=== PATIENT | female | born 1945 | race Caucasian/White ===

== ENCOUNTER 2016-10-07 12:59 | Emergency (ER) ==
[2016-10-07 13:05] VITALS: BP 150/75
--- NOTE | 2016-10-07 16:00 | PROVIDER DOCUMENTATION ---
HPI-General Adult - General Source: patient - History of Present Illness -Gen Adult Nature of Presenting Problems: 71 year old female presents to the ER with body aches, cough, runny nose and nausea x 2 days. Pt denies fever. Location of Pain/Injury: reports: head Onset/Duration: reports: 2 days ago Timing: reports: still present Associated Symptoms: reports: cough, sinus congestion/drainage, nausea <Apple Forrest - Last Filed: 10/07/16 16:45> <Jose Mcmullen - Last Filed: 10/07/16 16:52> - General Chief Complaint: Cold Symptoms Stated Complaint: FLU SX Time Seen by Provider: 10/07/16 15:48 Allergies/Adverse Reactions: Patient Allergies Allergy/AdvReac Type Severity Reaction Status Date / Time No Known Allergies Allergy Verified 06/26/14 19:34 Home Medications: Home Medication List Medication Instructions Recorded Confirmed Last Taken Type LOVAstatin [Mevacor] 40 mg PO WSUPPER 10/13/13 06/26/14 06/25/14 History Levothyroxine [Synthroid] 50 microgm PO DIRECTED 10/13/13 06/26/14 06/25/14 History Lorazepam 1 mg PO QPM PRN PRN 10/13/13 06/26/14 06/25/14 History Cephalexin [Keflex] 500 mg PO BID #20 capsule 06/26/14 Unknown Rx Tolterodine Tartrate [Detrol LA] 4 mg PO DAILY 06/26/14 06/26/14 06/26/14 History Guaifenesin/Codeine [Robitussin-AC] 10 ml PO Q4H PRN PRN #8 oz 10/07/16 Unknown Rx Review of Systems - Adult - REVIEW OF SYSTEMS - ADULT Constitutional: denies: chills, fever Eyes: reports: no symptoms reported Ears, Nose, Mouth & Throat: reports: ear pain, nose pain Cardiovascular: reports: no symptoms reported Respiratory: reports: cough. denies: wheezing Gastrointestinal: reports: nausea. denies: vomiting Genitourinary: reports: no symptoms reported Musculoskeletal: reports: no symptoms reported Integumentary: reports: no symptoms reported Neurological: reports: no symptoms reported Psychiatric: reports: no symptoms reported Endocrine: reports: no symptoms reported Hematologic/Lymphatic: reports: no symptoms reported Allergic/Immunologic: reports: no symptoms reported All Other Systems: Reviewed and Negative <Apple Forrest - Last Filed: 10/07/16 16:45> Past History - Adult - PAST MEDICAL HISTORY-ADULT Review of Records: reports: Nursing Assessment Review, Medications Reviewed Major Childhood Illnesses: reports: denies history Cardiovascular: reports: denies history Respiratory: reports: denies history Gastrointestinal: reports: denies history Obstetrical/Gynecological: reports: denies history Genitourinary: reports: other (uti last week) Musculoskeletal: reports: denies history Neurological: reports: denies history Psychiatric: reports: denies history Endocrine/Immune: reports: denies history Other Conditions: reports: denies history - PRIOR SURGERIES/PROCEDURES Surgical/Procedure History: reports: none - PRIOR HOSPITALIZATIONS Prior Hospitalizations: reports: none - IMMUNIZATION STATUS Childhood Immunizations: UTD, See Nurse Assessment Flu Vaccine: See Nurse Assessment - FAMILY HISTORY Family History: reviewed, not pertinent <Apple Forrest - Last Filed: 10/07/16 16:45> Physical Exam-General - PHYSICAL EXAM-ADULT Initial Vital Signs Reviewed: Yes - CONSTITUTIONAL General Appearance: alert, no apparent distress - EYES Eyes: PERRL/EOMI, pink conjunctivae - HEAD, EARS, NOSE, MOUTH & THROAT HENMT: normocephalic/atraumatic, moist mucous membranes - RESPIRATORY Respiratory: lungs clear, normal breath sounds - CARDIOVASCULAR Cardiovascular: normal peripheral pulses, regular rate, rhythm - MUSCULOSKELETAL Back Exam: normal inspection, no CVA tenderness Extremity: normal gait, normal inspection - SKIN Integumentary: normal color, warm/dry - NEUROLOGIC Neurologic: grossly normal, no motor/sensory deficits - PSYCHIATRIC Psych/Mental Status: normal mood/affect, normal thought content, normal thought process, oriented x 3 <Apple Forrest - Last Filed: 10/07/16 16:45> Progress - XRAY 1 XRAY Study: Chest Impression: Normal XRAY Interpretation: per Dr. Mcmullen <Apple Forrest - Last Filed: 10/07/16 16:45> Departure <Apple Forrest - Last Filed: 10/07/16 16:45> - Departure Time of Disposition Order: 16:47 Certified Medical Emergency: Emergent <Jose Mcmullen - Last Filed: 10/07/16 16:52> - Departure DIAGNOSIS: URI (upper respiratory infection) Qualifiers: URI type: unspecified viral URI Qualified Code(s): J06.9 - Acute upper respiratory infection, unspecified Disposition: HOME 01 Condition: Stable Prescriptions: Guaifenesin/Codeine [Robitussin-AC] 10 ml PO Q4H PRN PRN #8 oz PRN Reason: Cough Referrals: None,PCP [Primary Care Provider] - Attestation - Scribe Verification/Attestation Scribe:: Apple Forrest Acting as Scribe for:: Jose Mcmullen Scribe documention review:: This chart was documented by a scribe and accurately reflects the service the provider performed and the decisions made by the provider. <Apple Forrest - Last Filed: 10/07/16 16:45> Physician Attestation
[2016-10-07 16:40] LABS: MANUAL DIFF NEEDED? NO
[2016-10-07 16:42] LABS: BASO% 0.5 % (0.0-0.8); EOS# 0.15 X1000 (0.0-0.7); HEMATOCRIT 42.4 % (37.0-47.0); HEMOGLOBIN 14.5 g/dL (12.0-16.0); IMM GRAN# 0.01 X1000 (0.0-0.04); IMM GRAN% 0.1 % (0.0-0.5); LYMPH# 2.34 X1000 (1.2-3.4); LYMPH% 30.5 % (20.5-51.1); MCHC 34.2 g/dL (33-37); MCV 93.6 FL (81-99); MONO# 0.93 X1000 (0.11-0.59); MONO% 12.1 % (1.7-9.3); MPV 11.5 FL (7.4-10.4); NEUT% 54.8 % (42.2-75.2); PLT 155 X1000 (130-400); RBC 4.53 XMIL (4.2-5.4)
--- NOTE | 2016-10-07 18:10 | Diag Imaging Result Document ---
PROCEDURE NAME: CHEST-2 VIEWS - 10/07/2016 CHEST, 2 VIEWS: FINDINGS: No comparison exam. Heart size is normal. There is a small granuloma from old granulomatous disease at the left base. There are apparent mild COPD changes. There is no consolidation, pleural effusion, or pneumothorax identified. There is apparent degenerative disk disease with endplate sclerosis and anterior osteophytes at the mid to lower thoracic spine. IMPRESSION: 1. Mild COPD changes. 2. No evidence of acute disease. 3. Apparent degenerative disease noted at mid and lower thoracic spine.
== END 2016-10-07 17:02 | disposition home or self-care (01) ==
LOC: P.ED 12:59
DX: J06.9 Acute upper respiratory infection, unspecified (principal); R05 Cough; R09.89 Other specified symptoms and signs involving the circulatory and respiratory systems; R11.0 Nausea; R09.81 Nasal congestion; R52 Pain, unspecified; H92.09 Otalgia, unspecified ear; J34.89 Other specified disorders of nose and nasal sinuses; Z79.899 Other long term (current) drug therapy; Z87.440 Personal history of urinary (tract) infections
CPT/HCPCS: 71020; 85025; 99283

== ENCOUNTER 2016-10-19 08:06 | Day surgery (SDC) | payer OTHER ==
[2016-10-17 13:28] LABS: MANUAL DIFF NEEDED? NO
[2016-10-17 13:45] LABS: BASO% 0.4 % (0.0-0.8); EOS# 0.09 X1000 (0.0-0.7); EOS% 1.1 % (0.0-10.0); HEMATOCRIT 40.2 % (37.0-47.0); LYMPH# 2.97 X1000 (1.2-3.4); LYMPH% 34.8 % (20.5-51.1); MCH 32.6 PG (27-31); MCHC 34.8 g/dL (33-37); MCV 93.5 FL (81-99); MONO# 0.79 X1000 (0.11-0.59); MONO% 9.3 % (1.7-9.3); MPV 11.3 FL (7.4-10.4); NEUT% 54.4 % (42.2-75.2); PLT 197 X1000 (130-400)
[2016-10-17 13:47] LABS: INR 1.04
[2016-10-17 14:06] LABS: AGAP 13; ALBUMIN 4.2 g/dL (3.5-5.0); ALKALINE PHOSPHATASE 42 U/L (32-104); BUN 11 mg/dL (8-22); CALCIUM 9.6 mg/dL (8.8-10.2); CHLORIDE 100 mmol/L (98-107); COSMO 278; GOT 17 U/L (10-30); GPT 12 U/L (10-36); POTASSIUM 4.3 mmol/L (3.5-5.1); SODIUM 140 mmol/L (136-145); TCO2 27 mmol/L (25-35); TOTAL PROTEIN 7.2 g/dL (6.3-8.3)
[2016-10-19] MEDS ORDERED: NS 1,000 ML ONE (09:34)
--- NOTE | 2016-10-19 09:40 | EKG Report ---
Test Performed on : 10/19/2016 09:26:56 AM Test Reason : per MD order Blood Pressure : / mmHG Vent. Rate : 066 BPM Atrial Rate : 066 BPM P-R Int : 144 ms QRS Dur : 088 ms QT Int : 434 ms P-R-T Axes : 071 017 050 degrees QTc Int : 454 ms Sinus rhythm. with premature supraventricular complexes. Otherwise normal ECG No previous ECGs available Confirmed by Shanita PALOMARES, Marty Valdez ([id number]) on 10/19/2016 5:24:53 PM
[2016-10-19] MEDS ORDERED: HEPARIN 1000 UNITS/NS 1,000 ML ONE (09:42)
[2016-10-19] MEDS ORDERED: VERSED ONE (10:04)
[2016-10-19] MEDS ORDERED: DILAUDID ONE (10:04)
--- NOTE | 2016-10-19 11:09 | CARDIAC CATH REPORT ---
PROCEDURE NAME: - INDICATION FOR THE PROCEDURE: Patient with a normal myocardial perfusion scan but did have exertional chest discomfort as well as a Edouard treadmill score of -10 indicating a moderate risk study. She was continuing to have ongoing chest pain. We chose to pursue cardiac catheterization. PROCEDURES PERFORMED: 1. Left heart catheterization. 2. Selective coronary angiography. 3. Left ventriculogram. PROCEDURE IN DETAIL: Ms. Lakhani was brought to the catheterization laboratory in a fasting state. Informed consent was obtained. She was prepped in the usual fashion. She was anesthetized over the right radial artery after Marty's test was proved adequate. A 5-Lux[place]bourg[place] sheath was placed via true Seldinger technique. Radial cocktail was administered. Sheaths and catheters were introduced, and hemodynamic measurements were made via ascending thoracic aorta. Coronary angiography was performed in multiple views using JL3.5 and JR4 diagnostic catheters. Left heart catheterization and left ventriculogram were performed using the JR4. At the conclusion of the procedure, all sheaths and catheters were removed. TR band was left inflated at 11 mL of air. No apparent complications. There were 55 mL of contrast and 5 mL of blood loss. FINDINGS: 1. Left main appears to be normal. 2. Left anterior descending originates from the left main and has minimal luminal irregularities in the proximal vessel. The mid vessel has up to 30-40% disease with mild luminal irregularities noted in the distal vessel. 3. Circumflex originates from the left main. There are minimal luminal irregularities noted in the proximal vessel. The mid vessel has mild luminal irregularities up to around 20-30%. The distal vessel has minimal luminal irregularities. 4. Right coronary artery does appear to have some calcification noted at the ostium and the suggestion of a tight ostial lesion. However, this does have the appearance of spasm. There was some dampening occurring with engagement of the catheter. The mid and distal vessel appear to be normal throughout their course. 5. Left ventriculogram demonstrated an EF of 70%, normal wall motion. 6. Aortic blood pressure is 144/67 with a mean of 101. 7. Left ventricle pressure is 133/1 with an LVEDP of 17. ASSESSMENT: Ms. Lakhani is a 71-year-old female who had normal perfusion imaging but a Edouard treadmill score of -10 and ongoing chest discomfort. We chose to pursue cardiac catheterization secondary to risk factors and ongoing symptoms. PLAN: She does have what appears to be a potential spasm to the ostial right coronary. We will plan on trying to obtain a coronary CTA to further evaluate that. In addition, I will increase her antianginals in the form of her Imdur. We did not choose to add Toprol at the time of her last visit secondary to a heart rate of 66. We will use Toprol prior to the coronary CTA. We will continue to follow the patient outpatient.
[2016-10-19 13:45] VITALS: BP 141/65
== END 2016-10-19 13:46 | disposition home or self-care (01) ==
LOC: CATH 08:06
PROVIDERS: ATTEND Internal Medicine Cardiovascular Disease
DX: I20.1 Angina pectoris with documented spasm (principal); R07.89 Other chest pain; R93.1 Abnormal findings on diagnostic imaging of heart and coronary circulation; E78.00 Pure hypercholesterolemia, unspecified; R06.02 Shortness of breath; F43.22 Adjustment disorder with anxiety; M81.0 Age-related osteoporosis without current pathological fracture; Z79.82 Long term (current) use of aspirin; Z79.899 Other long term (current) drug therapy
CPT/HCPCS: 80053; 85025; 85610; 85730; 93005; 93010; 93458; J1170; J1644; J2250; J7030; Q9967